=== PATIENT | female | born 1945 | race Caucasian/White ===

== ENCOUNTER 2018-08-07 08:00 | Inpatient (IN) | payer OTHER, MEDICARE ==
[2018-08-07 10:56] VITALS: BMI 30.9
[2018-08-08] MEDS ORDERED: MIDAZOLAM HCL 2 MG/2 ML SINGLE DOSE VIAL ONE (07:46)
[2018-08-08] MEDS ORDERED: BUPIVACAINE HCL/PF 0.25% (2.5MG/ML) 10 ML VIAL ONE (07:48)
[2018-08-08] MEDS ORDERED: PROPOFOL 20 ML ONE (07:48)
[2018-08-08] MEDS ORDERED: LIDOCAINE HCL/PF 2% SDV 5ML VIAL ONE (07:48)
[2018-08-08] MEDS ORDERED: ROCURONIUM BROMIDE 50 MG/5 ML SYRINGE ONE ×3 (07:49→08:03)
[2018-08-08] MEDS ORDERED: fentaNYL CITRATE 250 MCG/5 ML VIAL ONE ×2 (07:50→10:36)
--- NOTE | 2018-08-08 07:50 | HP ---
History & Physical Update - History History: No Change - Physical Physical: No Change - Assessment Assessment: No Change - Plan Plan: No Change (repeat platelet count on 08/06 was 151)
[2018-08-08] MEDS ORDERED: CLINDAMYCIN PHOSPHATE 600 MG/4 ML VIAL IVPB ONE (08:25)
[2018-08-08] MEDS ORDERED: EPHEDRINE SULFATE/0.9% NACL/PF 50 MG/10 ML SYRINGE NR ONE ×2 (08:47→08:48)
[2018-08-08] MEDS ORDERED: BUPIVACAINE HCL/PF 0.25% (2.5MG/ML) 10 ML VIAL IJ ONE ×3 (08:53→10:57)
[2018-08-08] MEDS ORDERED: GLYCOPYRROLATE 0.2 MG/1 ML VIAL ONE ×2 (10:59)
[2018-08-08] MEDS ORDERED: NEOSTIGMINE METHYLSULFATE 0.5 MG/ML - 10 ML MDV ONE (10:59)
[2018-08-08] MEDS ORDERED: oxyCODONE HCL 5 MG TABLET PO PRN ×2 (11:13)
[2018-08-08] MEDS ORDERED: ONDANSETRON 4 MG/2 ML VIAL IVPUSH PRN ×3 (11:13→11:17)
[2018-08-08] MEDS ORDERED: PROMETHAZINE HCL 25 MG/1 ML VIAL IVPB PRN (11:17)
[2018-08-08] MEDS ORDERED: PROMETHAZINE HCL 25 MG/1 ML VIAL IVPUSH PRN (11:17)
[2018-08-08] MEDS ORDERED: ACETAMINOPHEN 1000 MG/100 ML VIAL (NON FORMULARY) IVPB ONE ×2 (11:21→18:00)
[2018-08-08] MEDS ORDERED: ACETAMINOPHEN INJECTION 100 ML IVPB ONE (11:25)
[2018-08-08] MEDS ORDERED: HYDROmorphone *PCA* 10MG/50ML DISP.SYRIN PCA SCH (11:30)
[2018-08-08] MEDS ORDERED: HYDROmorphone HCl 2 MG/ML VIAL ONE (11:46)
--- NOTE | 2018-08-08 11:49 | OP ---
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
--- NOTE | 2018-08-08 11:50 | SURG ---
Surgery Admitting Coordinator Note Admitting Coordinator: Leanne Palencia PA-C Date of Service: 08/08/18 Diagnosis: clear cell renal carcinoma/left kidney Procedure: left laparoscopic radical nephrectomy I was present for the entirety of the operative procedure. For further detail, please refer to operative report. Visit type - Case Type Case Type: Scheduled - Emergency Emergency Visit: No - New patient This patient is new to me today: Yes Date on this admission: 08/08/18
[2018-08-08] MEDS: SODIUM CHLORIDE 1,000 ML IV SCH ×2 (12:07→22:02)
[2018-08-08] MEDS: MORPHINE SULFATE 2 MG/ML VIAL IVPUSH PRN ×2 (14:54→22:03)
[2018-08-08] MEDS: CLINDAMYCIN 600MG PREMIX IVPB 600 MG/50 ML BAG IVPB SCH ×2 (17:50→18:00)
[2018-08-08] MEDS ORDERED: ACETAMINOPHEN 650 MG/20.3 ML ORAL SOLUTION (CUPS) PO SCH (18:00)
[2018-08-08] MEDS ORDERED: SERTRALINE HCL 25 MG TABLET (FP) PO SCH (22:00)
[2018-08-08] MEDS: HEPARIN NA (PORCINE) 5,000 UNITS/ML 1ML VIAL SQ SCH (22:03)
[2018-08-09] MEDS: ACETAMINOPHEN 650 MG/20.3 ML ORAL SOLUTION (CUPS) PO SCH ×4 (00:30→17:12)
[2018-08-09] MEDS: MORPHINE SULFATE 2 MG/ML VIAL IVPUSH PRN (03:12)
[2018-08-09] MEDS: SODIUM CHLORIDE 1,000 ML IV SCH ×2 (06:26→12:07)
[2018-08-09 08:20] LABS: BASO % 0.1 % (0-2.0); EOS % 0.1 % (0-4.5); HEMATOCRIT 27.5 % (32.4-45.2); HEMOGLOBIN 9.3 GM/dL (10.7-15.3); MCH 32.7 pg (25.7-33.7); MCHC 33.8 g/dl (32.0-36.0); MEAN CELL VOLUME 96.8 fl (80-96); MEAN PLT VOLUME 8.1 fl (7.5-11.1); NEUT % 62.8 % (42.8-82.8); RBC 2.84 M/mm3 (3.60-5.2); RDW 13.6 % (11.6-15.6); WHITE BLOOD COUNT 4.1 K/mm3 (4.0-10.0)
--- NOTE | 2018-08-09 08:29 | OPR ---
Date of Surgery: 08/09/18 Pre-Procedure Information Pre-op Diagnosis:Renal mass [N28.89] Procedure Information Procedure(s): LAPAROSCOPICLeft RADICALNEPHRECTOMY Anesthesia:General Surgeon(s) and Role: * Brittney Rodney MD - Primary Debrander: DELVIN Solano Procedure Description Indications: Left renal mass, bipopsy positive for renal cell cancer. Findings: Single artery and single vein, taken individually with separate stapler loads. Artery staple line enforced with Hem-O-Loc clips. Procedure Details: Pt was brought to operating room and placed in supine position. SCDs were applied, perioperativeantibiotics were administered, and general anesthesia was induced.16Fr Gibson was inserted. She was then positioned in modified flank position,axillary roll in place,back roll, bottom leg bent and three pillows hislegs. Left arm was placed on lombardo and he was secured in place tothe table. She was then prepped and draped in the usual sterile manner. A Veress needle was used to insufflate the abdomen to 15mm Hg justabove the umbilicus and in the lateral rectus border. A 12mm trocar was inserted and there was no evidence of injury to any visceral structures. A second 12mm trocar was insertedunder the costal margin in the mid clavicular line.A third 12mm trocar was inserted inferior to level of umbilicus again slightly lateral tothe mid clavicularline.Pneumoperitoneum maintained on 13 mmHg throughout the rest of the case. The white line of toldt was taken down with ligasure and colon retracted medially.Gonadal vein and ureter were encountered.The lower pole of the kidney was freed off the psoas muscleand lifted laterally, exposing the hilum. The hilum was dissected free consisting of one vein and one main artery above the vein and these were taken separately with 45mmEthicon powered stapler with an extra hemolock along the distal edge of vein.Left adrenal gland was spared. Ureter was clipped with hemolock then taken with ligasure. Posterior, medial,and lateral attachments were then freed with ligasure allowing kidney to be mobilized.Renal hilum was carefully inspected and there was some bleeding at [facility] artery staple line - artery dissected and 2 Hem-O-Loc clips applied proximal to the staple line.15mm endocatch bag was placed into theinferiortrocar and Left kidney placed within. The trocars were removed. 10 Fr BRI drain placed in the left retroperitoneum through the camera trocar. Theendocatchbag was removed through the lower quadrant incisionwhich was extended laterallyand this was then closed withan inner layer of 0 vicryl sutures in a [id number] fashion, and an outer layer of 0 vicryl running. Subcutaneous tissues closed with 3-0 vicryl.Skin was closed with 4-0 monocryl interruptedand dermabond. Estimated Blood Loss: 50 ml. Drains: BRI drain.
[2018-08-09 08:57] LABS: PLATELET COUNT 185 K/MM3 (134-434)
--- NOTE | 2018-08-09 09:01 | PN ---
Progress Note (short form) - Note Progress Note: Post op day#1.S/P Laproscopic left radical nephrectomy under [place] uneventful.Patient stable and has some pain for which she is on medication.No any anesthesia related problem.Patient DC from the anesthesia care.
[2018-08-09 09:20] LABS: BLOOD UREA NITROGEN 15.6 mg/dL (7-18); CALCIUM 7.9 mg/dL (8.5-10.1); CREATININE 1.2 mg/dL (0.55-1.3); POTASSIUM 4.8 mmol/L (3.5-5.1)
[2018-08-09] MEDS ORDERED: PT OWN MED DRAWER 7, Y5N ONE (09:32)
[2018-08-09] MEDS: HEPARIN NA (PORCINE) 5,000 UNITS/ML 1ML VIAL SQ SCH (09:35)
[2018-08-09] MEDS ORDERED: LOSARTAN POTASSIUM 50 MG TABLET (FP) PO SCH (10:00)
[2018-08-09] MEDS ORDERED: CALCIUM 500MG/VIT-D 200 UNITS COMBO TABLET (FP) PO SCH (10:00)
[2018-08-09] MEDS ORDERED: LETROZOLE 2.5 MG TABLET (FP) PO SCH (10:00)
[2018-08-09 11:37] VITALS: BP 123/58; PULSE 66; TEMP 98.4
--- NOTE | 2018-08-24 15:46 | PATH ---
Surgical Pathology Report Patient Name: FAMILIA BLACKWELL [facility]. Rec. #: [id number] /Age/Gender: 1945 (Age: 72) / F Account: [id number] Location: [address] [place] [address]/[facility] Taken: 08/08/2018 Received: 08/08/2018 Reported: 08/24/2018 Physicians: Brittney Rodney M.D. Specimen(s) Received LEFT KIDNEY Clinical History Left renal cell carcinoma Final Diagnosis KIDNEY, LEFT, LAPAROSCOPIC RADICAL NEPHRECTOMY: RENAL CELL CARCINOMA, FAVOR CLEAR CELL TYPE, GRADE 2 (WHO/ISUP GRADE) TUMOR MEASURES 6 CM IN GREATEST DIMENSION (GROSS MEASUREMENT). TUMOR LOCATED AT UPPER POLE. NO SARCOMATOID OR RHABDOID FEATURES IDENTIFIED. NO TUMOR NECROSIS IDENTIFIED. NO LYMPHOVASCULAR INVASION IDENTIFIED. SURGICAL MARGINS ARE NEGATIVE. ONE LYMPH NODE NEGATIVE FOR CARCINOMA (0/1). ADJACENT RENAL PARENCHYMA SHOWS NO SIGNIFICANT PATHOLOGIC FINDINGS. AJCC (TNM) STAGE (8th Edition): pT1b pN0. SEE SUMMARY BELOW. SEE COMMENT. Comment: This case was sent to Dr. Manuel Trotter, genitourinary pathologist, from [place], [place], the diagnosis above reflects his opinion ([id number]). 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 The diagnosis of clear cell carcinoma rather than clear cell papillary type is favored due to the following reasons: The presence of areas typical of clear cell (conventional) morphology. The immunophenotype that is based on both submitted stains (CK7, P504S, PAX8, CD10, RCC) as well as those performed at [facility] (CA-IX, repeat CK7 and [id number]). Overall, the tumor shows diffuse and boxlike membranous CAIX expression and lacks expression of CK7, P504S and [id number]. In one slide (#2), the tumor appears to protrude into a vascular space but also seems to be at least partially contained within the renal parenchyma, and as such, is not considered to be stage determining." Case discussed with Dr. Rodney by Dr. Rodriguez, 08/24/18. Comments Kidney: Surgical Pathology Cancer Case Summary (Based on AJCC 8th edition) Procedure _X_ Laparoscopic radical nephrectomy Specimen Laterality _X_ Left Tumor Size Greatest dimension (centimeters): 6 cm Tumor Focality _X_ Unifocal Histologic Type _X_ Clear cell renal cell carcinoma Sarcomatoid Features _X_ Not identified Rhabdoid Features _X_ Not identified Histologic Grade (WHO / ISUP Grade) _X_ G2: Nucleoli conspicuous and eosinophilic at 400x magnification, visible but not prominent at 100x magnification Tumor Necrosis _X_ Not identified Tumor Extension _X_ Tumor limited to kidney Margins _X__ Uninvolved by invasive carcinoma Lymphovascular Invasion (excluding renal vein and its segmental branches and inferior vena cava) _X_ Not identified Regional Lymph Nodes Number of Lymph Nodes Involved: 0 Number of Lymph Nodes Examined: 1 Pathologic Stage Classification (pTNM, AJCC 8th Edition) _X_ pT1b: Tumor >4 cm but =7 cm in greatest dimension limited to the kidney Regional Lymph Nodes (pN) _X_ pN0: No regional lymph node metastasis Pathologic Findings in Nonneoplastic Kidney _X__ None identified Electronically Signed Blanca Wilson M.D. Gross Description Received in formalin labeled "left kidney," is a 724 g nephrectomy specimen. The kidney measures 13.5 x 5.5 x 5.0 cm and displays an attached 1 cm in length portion of ureter, a 1 cm in length portion of renal vein and a 0.5 cm in length portion of renal artery. There is abundant attached perinephric fat, measuring up to 3 cm in thickness. The outer capsule of the kidney is cota and intact. Sectioning reveals a 6.0 x 5.0 x 4.2 cm red-brown and yellow, variegated, hemorrhagic, well circumscribed mass comprising the majority of the upper pole focally abutting the renal pelvis. The mass abuts the outer capsule but does not appear to invade through it. No definite involvement of the vessels is identified. The remaining kidney parenchyma is cota-brown and unremarkable. There is a 0.8 cm in greatest dimension possible hilar lymph node identified. There is no adrenal gland identified. Transmission Builder sections are submitted in 10 cassettes as follows: 1-vesicular ureteral margins; 2-3-mass with the renal pelvis; 4-5-mass with renal sinus; 6-mass with surrounding normal parenchyma; 7-8-mass with outer capsule and perinephric fat; 9-uninvolved lower pole parenchyma; 10-one bisected lymph node. 08/10/2018 saudi08/10/2018
== END 2018-08-09 17:54 | disposition home or self-care (01) | DRG 658 ==
LOC: EDSTATUS 08:00 → JSAMEDAYSX 08-08 06:07 → J6S 08-08 14:24
PROVIDERS: ADMIT Student in an Organized Health Care Education/Training Program; ATTEND Student in an Organized Health Care Education/Training Program
PROC: 0TT14ZZ Resection of Left Kidney, Percutaneous Endoscopic Approach (ICD-10-PCS; principal; 2018-08-09)
DX: C64.2 Malignant neoplasm of left kidney, except renal pelvis (principal); I10 Essential (primary) hypertension; D64.9 Anemia, unspecified; J45.909 Unspecified asthma, uncomplicated
CPT/HCPCS: 36415; 80048; 85025; 86850; 86900; 86901; 86922; 88307-TC; J0131; J1644; J7030